=== PATIENT | female | born 1995 | race American Indian/Alaskan Native ===

== ENCOUNTER 2016-07-30 01:49 | Inpatient (IN) | payer MEDICAID ==
[2016-07-30] MEDS ORDERED: LACTATED RINGERS 1,000 ML ONE (05:24)
[2016-07-30] MEDS ORDERED: POLYCILLIN/NS 2 GM/100 ML 2 GM/100 ML BAG IV ONE ×2 (05:24→05:49)
[2016-07-30 05:57] LABS: Urine Drugs of Abuse Note Disclamer
[2016-07-30] MEDS ORDERED: LACTATED RINGERS 1,000 ML IV SCH ×2 (06:00→09:00)
[2016-07-30] MEDS ORDERED: STADOL IV PRN (06:03)
[2016-07-30 06:13] LABS: Hemoglobin 9.7 gm/dl (10.1-14.3); Mean Corpuscular HGB Conc 31 % (30-34); Mean Corpuscular Hemoglobin 21 pg (28-32); Mean Corpuscular Volume 67 fl (79-97); Platelet Count 265 K/mm3 (140-440); Red Blood Count 4.66 M/mm3 (3.65-5.03); Red Cell Distribution Width 16.8 % (13.2-15.2); White Blood Count 8.6 K/mm3 (4.5-11.0)
[2016-07-30 06:39] LABS: HIV-1 Antigen p24 Non React (Non React); HIVR-1/2 Ab Non React (Non React)
[2016-07-30] MEDS ORDERED: ePHEDrine SULFATE IV PRN ×2 (08:08→11:10)
[2016-07-30] MEDS ORDERED: BRETHINE SUB-Q PRN (08:08)
[2016-07-30] MEDS ORDERED: MINERAL OIL PO PRN (08:08)
[2016-07-30] MEDS ORDERED: BRETHINE IVP PRN (08:08)
[2016-07-30] MEDS ORDERED: ZOFRAN IV PRN ×2 (08:08→12:48)
[2016-07-30] MEDS ORDERED: XYLOCAINE 2% INFILTRATI ONE (08:08)
[2016-07-30] MEDS ORDERED: NARCAN 0.4 MG/1 ML IV PRN (08:08)
--- NOTE | 2016-07-30 08:17 | History and Physical Report ---
History of Present Illness Date of examination: 07/30/16 Date of admission: 07/30/16 05:09 Chief complaint: Labor History of present illness: Pt is a 21yo BF EDC 08/04/16; EGA 39 2/7 weeks presents to L&D complaining of RUC's q 3-5 mins. Pt has not received care, but states course has been unremarkable except for a left Bartholin cyst. GBS is unknown. Past History Past Medical History: no pertinent history Past Surgical History: no surgical history Family/Genetic History: none Social history: no significant social history, single - Obstetrical History Expected Date of Delivery: 08/04/16 Actual Gestation: 39 Week(s) 2 Day(s) : 1 Medications and Allergies Allergies Allergy/AdvReac Type Severity Reaction Status Date / Time ibuprofen Allergy Hives Verified 07/30/16 01:51 Active Meds: Active Medications Butorphanol Tartrate (Stadol) 2 mg IV Q2H PRN PRN Reason: Labor Pain Last Admin: 07/30/16 06:05 Dose: 2 mg Lactated Ringer's (Lactated Ringers) 1,000 mls @ 125 mls/hr IV DIRECT [place] Last Admin: 07/30/16 05:35 Dose: 125 mls/hr Review of Systems All systems: negative - Vital Signs Vital signs: Vital Signs Pulse Pulse Ox 57 L 99 07/30/16 02:01 07/30/16 02:01 Temp Pulse Resp BP Pulse Ox 98.5 F 73 20 98/56 100 07/30/16 07:28 07/30/16 08:09 07/30/16 07:28 07/30/16 07:22 07/30/16 08:09 - Physical Exam Breasts: Positive: deferred Cardiovascular: Regular rate Lungs: Positive: Clear to auscultation Abdomen: Positive: normal appearance Genitourinary (Female): Positive: normal external genitalia Vagina: Positive: normal moisture Uterus: Positive: enlarged Extremities: Positive: normal - Obstetrical FHR: category 1 Uterine Contraction Monitor Mode: External Cervical Dilatation: 8 Cervical Effacement Percentage: 100 station: 0 Uterine Contraction Pattern: Irregular Uterine Tone Measurement Phase: Contraction Uterine Contraction Intensity: Strong/Firm Results Result Diagrams: 07/30/16 05:05 Abnormal lab results 05/28/17 Range/Units 05:05 Hgb 9.7 L (10.1-14.3) gm/dl MCV 67 L (79-97) fl MCH 21 L (28-32) pg RDW 16.8 H (13.2-15.2) % All other labs normal. Ultrasound: report reviewed (BPP 10/10; MILO 5.9) Assessment and Plan - Patient Problems (1) 39 weeks gestation of Onset Date: 07/30/16 Current Visit: Yes Status: Acute Plan to address problem: A: IUP @ 39 2/7 weeks in labor No care P: Admit to L&D for expectant vaginal delivery Unknown GBS Obtain labs (2) No care in current Onset Date: 07/30/16 Current Visit: Yes Status: Acute Qualifiers: Trimester: third trimester Qualified Code(s): O09.33 - Supervision of with insufficient care, third trimester
[2016-07-30] MEDS: SUBLIMAZE IV PRN ×2 (08:31→10:12)
[2016-07-30] MEDS ORDERED: PITOCin/NS 20 UNIT/1000ML DRIP 20 UNITS/1,000 ML BAG IV SCH ×2 (09:00→13:00)
[2016-07-30] MEDS ORDERED: PITOCin/NS 30 UNIT/500ML 30 UNITS/500 ML BAG IV SCH (09:00)
[2016-07-30] MEDS ORDERED: POLYCILLIN/NS 1 GM/50 ML 1 GM/50 ML BAG IV SCH ×2 (10:00→12:12)
[2016-07-30] MEDS ORDERED: ePHEDrine SULFATE ONE (10:34)
--- NOTE | 2016-07-30 10:41 | Ultrasound Report ---
BIOPHYSICAL PROFILE: 2 - breathing movements 2 - movements 2 - posture and tone 2 - Qualitative amniotic fluid volume 8 - TOTAL SCORE OF POSSIBLE 8 Heart Rate (bpm) 154 Gestation: Single Position: Cephalic Amniotic Fluid: MILO = 5.9 cm Heart Rate: 154 BPM
--- NOTE | 2016-07-30 11:09 | Anesthesia Consultation ---
Anesthesia Consult and Med Hx Date of service: 07/30/16 - Airway Anesthetic Teeth Evaluation: Good ROM Head & Neck: Adequate Mental/Hyoid Distance: Adequate Intubation Access Assessment: Probably Good - Pre-Operative Health Status ASA Pre-Surgery Classification: ASA2, Emergency Proposed Anesthetic Plan: Epidural, Spinal - Pulmonary Hx Asthma: No COPD: No Hx Pneumonia: No - Cardiovascular System Hx Hypertension: No - Central Nervous System Hx Seizures: No Hx Psychiatric Problems: No - Endocrine Hx Renal Disease: No Hx End Stage Renal Disease: No Hx Hypothyroidism: No Hx Hyperthyroidism: No - Hematic Hx Anemia: No Hx Sickle Cell Disease: No - Other Systems Hx Alcohol Use: No
--- NOTE | 2016-07-30 11:09 | Anesthesia Day of Surgery ---
Anesthesia Day of Surgery - Day of Surgery Patient Examined: Yes Patient H&P Reviewed: Yes Patient is NPO: Yes
[2016-07-30] MEDS: fentaNYL-BUPIV 2 MCG/ML-0.125% 200 MCG/100 ML BAG EPIDURAL SCH ×2 (11:37→12:34)
--- NOTE | 2016-07-30 12:45 | Procedure Note ---
OB Delivery Note - Delivery Date of Delivery: 07/30/16 Surgeon: TICO LUCAS Estimated blood loss: 200cc - Vaginal Delivery presentation: vertex Delivery position: OA Intrapartum events: no care, mult.variable deceleratio Delivery induction: none Delivery augmentation: rupture of membranes Delivery monitor: external FHT, external uterine Route of delivery: Delivery placenta: spontaneous Delivery cord: nuchal cord (body cord x 1) Episiotomy: none Delivery laceration: 1st degree (Bartholin cyst incision and repair) Delivery repair: vicryl Anesthesia: epidural Delivery comments: delivered OA and placed on Mom's chest for [id number] bonding and delayed cord clamping. - A at 1 minute: 8 at 5 minutes: 9 Gender: Male (3590gms)
[2016-07-30] MEDS ORDERED: MILK OF MAGNESIA PO PRN (12:48)
[2016-07-30] MEDS ORDERED: TYLENOL PO PRN (12:48)
[2016-07-30] MEDS ORDERED: PHENERGAN PO PRN (12:48)
[2016-07-30] MEDS ORDERED: PHENERGAN PR PRN (12:48)
[2016-07-30] MEDS ORDERED: TUCKS PAD TP PRN (12:48)
[2016-07-30] MEDS ORDERED: DULCOLAX PR PRN (12:48)
[2016-07-30] MEDS ORDERED: BENADRYL PO PRN (12:48)
[2016-07-30] MEDS ORDERED: LANSINOH TP PRN (12:48)
[2016-07-30] MEDS ORDERED: NORCO 5/325 PO PRN (12:48)
[2016-07-30] MEDS ORDERED: SENOKOT S PO SCH (13:00)
[2016-07-30] MEDS ORDERED: SODIUM CHLORIDE FLUSH SYRINGE 10 ML IV NR (13:00)
[2016-07-30] MEDS ORDERED: MOTRIN PO SCH (13:00)
[2016-07-30] MEDS: FEOSOL PO SCH (21:46)
[2016-07-30] MEDS: COLACE PO SCH (21:46)
[2016-07-30] MEDS: PERCOCET 5/325 PO PRN (22:11)
[2016-07-31 01:09] LABS: Hematocrit 27.8 % (30.3-42.9); Hemoglobin 8.6 gm/dl (10.1-14.3)
[2016-07-31] MEDS: PERCOCET 5/325 PO PRN ×2 (05:34→14:29)
[2016-07-31] MEDS ORDERED: BOOSTRIX IM ONE (06:00)
[2016-07-31] MEDS ORDERED: PRENATAL VITAMIN PO SCH (10:00)
--- NOTE | 2016-07-31 11:13 | Progress Note ---
Assessment and Plan - Patient Problems (1) 39 weeks gestation of Onset Date: 07/30/16 Current Visit: Yes Status: Resolved (2) No care in current Onset Date: 07/30/16 Current Visit: Yes Status: Resolved Qualifiers: Trimester: third trimester Qualified Code(s): O09.33 - Supervision of with insufficient care, third trimester (3) (normal spontaneous vaginal delivery) Onset Date: 07/31/16 Current Visit: Yes Status: Resolved Plan to address problem: A: S/P - PPD #1 Doing well P: May go home today Subjective - Subjective Date of service: 07/31/16 Principal diagnosis: s/p - PPD #1 Interval history: Pt is feeling well without complaints. Bleeding improved. Patient reports: appetite normal, voiding normally, pain well controlled, flatus , ambulating normally [place]: doing well, nursing well Objective - Vital Signs Latest vital signs: Vital Signs Temp Pulse Pulse Resp BP BP Pulse Ox 07/31/16 08:51 98.8 F 62 18 100/68 07/31/16 04:15 98.6 F 63 16 130/74 07/31/16 00:00 98.6 F 72 16 101/56 07/30/16 19:30 98.6 F 71 16 109/54 07/30/16 14:20 98.4 F 71 18 108/65 07/30/16 13:39 64 111/59 07/30/16 13:37 57 L 100 07/30/16 13:32 63 99 07/30/16 13:27 62 100 07/30/16 13:24 72 110/60 07/30/16 13:22 62 100 07/30/16 13:17 66 99 07/30/16 13:12 76 99 07/30/16 13:09 80 117/68 07/30/16 13:07 69 99 07/30/16 13:02 78 99 07/30/16 12:57 68 99 07/30/16 12:54 65 120/56 07/30/16 12:52 75 99 07/30/16 12:47 80 99 07/30/16 12:42 69 98 07/30/16 12:39 75 119/68 07/30/16 12:37 80 93 07/30/16 12:32 69 100 07/30/16 12:27 58 L 100 07/30/16 12:24 89 112/57 07/30/16 12:22 88 100 07/30/16 12:17 82 100 07/30/16 12:12 72 100 07/30/16 12:09 88 134/91 07/30/16 12:07 67 100 07/30/16 12:02 59 L 100 07/30/16 11:57 59 L 100 07/30/16 11:54 58 L 113/65 07/30/16 11:52 58 L 99 07/30/16 11:47 56 L 100 07/30/16 11:42 56 L 99 07/30/16 11:36 56 L 102/55 07/30/16 11:35 56 L 99 07/30/16 11:34 58 L 102/54 07/30/16 11:32 57 L 102/53 07/30/16 11:30 58 L 102/56 99 07/30/16 11:28 51 L 107/57 07/30/16 11:26 59 L 105/55 07/30/16 11:25 57 L 99 07/30/16 11:24 58 L 107/58 07/30/16 11:22 58 L 108/55 07/30/16 11:20 59 L 109/56 97 07/30/16 11:18 55 L 112/61 07/30/16 11:16 61 119/68 07/30/16 11:15 54 L 100 07/30/16 11:14 52 L 111/64 07/30/16 11:13 56 L 115/66 07/30/16 11:11 55 L 101/57 Intake and Output 07/30/16 07/31/16 07/31/16 22:59 06:59 14:59 Intake Total 300 120 Output Total 800 Balance -800 300 120 Intake: Oral 120 Intake, Free Water 300 Output: Urine 800 Indwelling Catheter 800 Other: Total, Intake Amount 120 Total, Output Amount 800 # Voids Indwelling Catheter 1 Void 1 1 - Exam Breasts: Present: deferred Cardiovascular: Present: Regular rate Lungs: Present: Clear to auscultation Abdomen: Present: normal appearance, soft Uterus: Present: normal, firm, fundal height below umbilicus Extremities: Present: normal - Labs Labs: Abnormal lab results 07/31/16 Range/Units 00:57 Hgb 8.6 L (10.1-14.3) gm/dl Hct 27.8 L (30.3-42.9) % Laboratory Tests 07/30/16 07/30/16 07/30/16 05:05 05:05 05:05 WBC RBC Hgb Hct MCV MCH MCHC RDW Plt Count Urine Opiates Screen Presumptive negative Urine Methadone Screen Presumptive negative Ur Barbiturates Screen Presumptive negative Ur Phencyclidine Scrn Presumptive negative Ur Amphetamines Screen Presumptive negative U Benzodiazepines Scrn Presumptive negative Urine Cocaine Screen Presumptive negative U Marijuana (THC) Screen Presumptive negative Drugs of Abuse Note Disclamer RPR Nonreactive Hep Bs Antigen Hep B Core IgM Ab Non-reactive HIV 1&2 Antibody Rapid HIV P24 Antigen Rubella IgG Antibody Immune Blood Type Antibody Screen ELANA Antibody Screen 07/30/16 07/30/16 07/30/16 05:05 05:05 05:05 WBC 8.6 RBC 4.66 Hgb 9.7 L Hct 31.0 MCV 67 L MCH 21 L MCHC 31 RDW 16.8 H Plt Count 265 Urine Opiates Screen Urine Methadone Screen Ur Barbiturates Screen Ur Phencyclidine Scrn Ur Amphetamines Screen U Benzodiazepines Scrn Urine Cocaine Screen U Marijuana (THC) Screen Drugs of Abuse Note RPR Hep Bs Antigen Non-reactive Hep B Core IgM Ab HIV 1&2 Antibody Rapid Non react HIV P24 Antigen Non react Rubella IgG Antibody Blood Type A POSITIVE Antibody Screen TNR ELANA Antibody Screen Negative 07/30/16 07/31/16 05:05 00:57 WBC RBC Hgb 8.6 L Hct 27.8 L MCV MCH MCHC RDW Plt Count Urine Opiates Screen Urine Methadone Screen Ur Barbiturates Screen Ur Phencyclidine Scrn Ur Amphetamines Screen U Benzodiazepines Scrn Urine Cocaine Screen U Marijuana (THC) Screen Drugs of Abuse Note RPR Hep Bs Antigen Hep B Core IgM Ab HIV 1&2 Antibody Rapid HIV P24 Antigen Rubella IgG Antibody Immune Blood Type Antibody Screen ELANA Antibody Screen
--- NOTE | 2016-07-31 11:20 | Discharge Summary ---
Providers - Providers Date of Admission: 07/30/16 05:09 Date of discharge: 07/31/16 Attending physician: TICO LUCAS Primary care physician: TICO LUCAS Hospitalization Reason for admission: active labor, IUP at term, other (No care) Delivery: Episiotomy: none Laceration: 1st degree (left bartholin cyst) Other procedures: none complications: none Discharge diagnosis: IUP at term delivered [place] baby: male Hospital course: Unremarkable. Condition at discharge: Good Disposition: DISCHARGED TO HOME OR SELFCARE - Discharge Diagnoses (1) 39 weeks gestation of Status: Resolved (2) No care in current Status: Resolved Qualifiers: Trimester: third trimester Qualified Code(s): O09.33 - Supervision of with insufficient care, third trimester (3) (normal spontaneous vaginal delivery) Status: Resolved Plan - Discharge Medications Prescriptions: Ferrous Sulfate [Feosol 325 MG tab] 325 mg PO BID #60 tablet HYDROcodone/APAP 5-325 [Avenue 5-325 mg TAB] 1 each PO Q6H PRN #20 tablet PRN Reason: Pain, Moderate (4-6) Vit-Fe Fumar-FA [ Vitamin] 1 each PO QDAY #30 tablet - Provider Discharge Summary Activity: routine, no sex for 6 weeks, no heavy lifting 4 weeks, no strenuous exercise Diet: routine Instructions: routine Additional instructions: [] Smoking cessation referral if applicable(refer to patient education folder for contact #) [] Refer to [facility]'s [facility] Booklet Call your doctor immediately for: * Fever > 100.5 * Heavy vaginal bleeding ( >1 pad per hour) * Severe persistent headache * Shortness of breath * Reddened, hot, painful area to leg or breast * Drainage or odor from incision. * Keep incision clean and dry at all times and follow doctor's instructions regarding bathing/showering - Follow up plan Follow up: TICO LUCAS MD [Primary Care Provider] - 6 Weeks
[2016-07-31] MEDS: FEOSOL PO SCH (11:39)
[2016-07-31] MEDS: COLACE PO SCH (11:39)
[2016-07-31] MEDS ORDERED: M-M-R II VACCINE SUB-Q ONE (12:48)
[2016-07-31 14:37] VITALS: BP 114/58
== END 2016-07-31 17:07 | disposition home or self-care (01) | DRG 768 ==
LOC: TRG 01:49 → LD 05:09 → OB 14:23
PROVIDERS: ADMIT Obstetrics & Gynecology; ATTEND Obstetrics & Gynecology
PROC: 10E0XZZ Delivery of Products of Conception, External Approach (ICD-10-PCS; principal; 2016-07-30)
PROC: 0UQ Female Reproductive System, Repair (ICD-10-PCS; 2016-07-30)
PROC: 3E0S3CZ (ICD-10-PCS; 2016-07-30)
PROC: 00HU33Z Insertion of Infusion Device into Spinal Canal, Percutaneous Approach (ICD-10-PCS; 2016-07-30)
PROC: 0HQ9XZZ Repair Perineum Skin, External Approach (ICD-10-PCS; 2016-07-30)
PROC: 3E0234Z Introduction of Serum, Toxoid and Vaccine into Muscle, Percutaneous Approach (ICD-10-PCS; 2016-07-31)
DX: O76 Abnormality in fetal heart rate and rhythm complicating labor and delivery (principal); O75.89 Other specified complications of labor and delivery; O69.81X0 Labor and delivery complicated by cord around neck, without compression, not applicable or unspecified; O70.0 First degree perineal laceration during delivery; N75.0 Cyst of Bartholin's gland; O09.33 Supervision of pregnancy with insufficient antenatal care, third trimester; Z3A.39 39 weeks gestation of pregnancy; Z37.0 Single live birth; Z88.8 Allergy status to other drugs, medicaments and biological substances; Z23 Encounter for immunization
CPT/HCPCS: 36415; 76815; 76819; 80307; 85014; 85018; 85027; 86592; 86705; 86706; 86762; 86850; 86900; 86901; 87806; 90715; 99211; A6250; G0463; J0290; J0595; J2590; J3010; J7120